=== PATIENT | female | born 1980 | race Caucasian/White ===

== ENCOUNTER → 2023-11-15 14:58 | Outpatient (REF) | payer BC, SELFPAY | LOC: PNTC 14:58 | PROVIDERS: ATTENDING PHYSICIAN Obstetrics & Gynecology | DX: Z36.82 Encounter for antenatal screening for nuchal translucency (principal); Z36.0 Encounter for antenatal screening for chromosomal anomalies; O09.511 Supervision of elderly primigravida, first trimester | CPT/HCPCS: 76801; 76813 ==

== ENCOUNTER → 2024-03-19 10:21 | Outpatient (REF) | payer BC, SELFPAY ==
--- NOTE | 2024-03-19 13:50 | PN.DIAED06 ---
Meal Plan - Gestational
- Breakfast
Gestational Diabetes Meal Plan Name: 1800 calories
Breakfast - Total Carbohydrate (grams): 30
Breakfast - Starch Carbohydrate: 1
Breakfast - Fruit Carbohydrate: 0
Breakfast - Milk Carbohydrate: 1
Breakfast - Nonstarchy Vegetables: Yes
Breakfast - Meat/Protein: 1
Breakfast - Fat: 2
- Morning Snack
Morning Snack - Total Carbohydrate (grams): 30
Morning Snack - Starch Carbohydrate: 1
Morning Snack - Fruit Carbohydrate: 0
Morning Snack - Milk Carbohydrate: 1
Morning Snack - Nonstarchy Vegetables: Yes
Morning Snack - Meat/Protein: 0.5
Morning Snack - Fat: 0
- Lunch
Lunch - Total Carbohydrate (grams): 45
Lunch - Starch Carbohydrate: 2
Lunch - Fruit Carbohydrate: 1
Lunch - Milk Carbohydrate: 0
Lunch - Nonstarchy Vegetables: Yes
Lunch - Meat/Protein: 2
Lunch - Fat: 1
- Afternoon Snack
Afternoon Snack - Total Carbohydrate (grams): 30
Afternoon Snack - Starch Carbohydrate: 1
Afternoon Snack - Fruit Carbohydrate: 1
Afternoon Snack - Milk Carbohydrate: 0
Afternoon Snack - Nonstarchy Vegetables: Yes
Afternoon Snack - Meat/Protein: 1
Afternoon Snack - Fat: 0
- Dinner
Dinner - Total Carbohydrate (grams): 45
Dinner - Starch Carbohydrate: 2
Dinner - Fruit Carbohydrate: 0
Dinner - Milk Carbohydrate: 1
Dinner - Nonstarchy Vegetables: Yes
Dinner - Meat/Protein: 2
Dinner - Fat: 2
- Evening Snack
Evening Snack - Total Carbohydrate (grams): 30
Evening Snack - Starch Carbohydrate: 1
Evening Snack - Fruit Carbohydrate: 0
Evening Snack - Milk Carbohydrate: 1
Evening Snack - Nonstarchy Vegetables: Yes
Evening Snack - Meat/Protein: 1
Evening Snack - Fat: 1
--- NOTE | 2024-03-19 15:03 | PN.DE ---
Diabetes Education
- -
Met with Ms. Waddell today, currently at 31 weeks of gestation, here today for medical nutrition therapy.
Explained glucose metabolism in body and what occurs during to cause increase blood sugar. Discussed importance of keeping BS well controlled to avoid complications to the baby during and after (macrosomia, hypoglycemia).
Explained to Mary that she is at increased risk of developing T2DM in the future. Mary brought with her an [employer] glucose meter.
Provided instructions on proper testing technique on the glucometer. Reviewed testing sites and testing pattern. She is aware to test FBS and 2 hr pp each meal. Expected results for FBS <95 mg/dl and 2 hr pp <120 mg/dl. She is aware if testing 1 hr
pp, result should be <140 mg/dl. Noted for blood sugar of 96
2 hrs after lunch. Log sheet provided for her to record results, she will send a 4 day meal log with all her FBG and 2hr Post prandial glucose numbers to this office for review. In addition, she will send all her glucose readings to Erna at
[facility] every Monday.
Discussed macronutrients, provided with 1800 nasreen GDM meal plan, she has a good understanding of healthy nutrition. She has been educated on how to read a nutritional fact label and look at total CHO in relation to serving size. No fruit or fruit
juice until noontime. Provided with handout on snacks as well as 'Choose Your Foods' booklet. Encouraged exercise and increase physical activity during and encouraged her to reach out should she have any questions or require insulin as her
progresses.
== END ==
LOC: DES 10:21
PROVIDERS: ATTENDING PHYSICIAN Obstetrics & Gynecology
DX: O24.419 Gestational diabetes mellitus in pregnancy, unspecified control (principal)
CPT/HCPCS: 99078

== ENCOUNTER → 2024-03-25 17:19 | Outpatient (REF) | payer BC, SELFPAY | LOC: PNTC 17:19 | PROVIDERS: ATTENDING PHYSICIAN Obstetrics & Gynecology | DX: O09.519 Supervision of elderly primigravida, unspecified trimester (principal); O24.419 Gestational diabetes mellitus in pregnancy, unspecified control | CPT/HCPCS: 76816 ==

== ENCOUNTER → 2024-04-02 16:55 | Outpatient (REF) | payer BC, SELFPAY | LOC: PNTC 16:55 | PROVIDERS: ATTENDING PHYSICIAN Obstetrics & Gynecology | DX: O24.419 Gestational diabetes mellitus in pregnancy, unspecified control (principal); O09.529 Supervision of elderly multigravida, unspecified trimester; O09.299 Supervision of pregnancy with other poor reproductive or obstetric history, unspecified trimester | CPT/HCPCS: 59025; 76815 ==

== ENCOUNTER → 2024-04-11 08:23 | Outpatient (REF) | payer BC, SELFPAY ==
--- NOTE | 2024-04-11 15:03 | PN.DE.MGMTRT ---
Insulin Management
- -
04/11/2024: Diabetes Education Consult for Insulin Instructions.
Met with Mary today for insulin instructions, currently at 34 weeks gestation with GDM. Her fasting glucose levels have been 98 to 123mg/dl, and 96 to 137mg/dl 2 hrs after meals. Pt has been recommended to start insulin-NPH 8 units @ HS per her
Perinatologist Dr. Alford. Discussed action of insulins as well as symptoms and treatment of hypoglycemia. She is aware to inject insulin in outer thigh, rotating sites and aware to store insulin pens that are not in use in the refrigerator.
Instructions with good return demonstration using the insulin pen were noted. Discussed importance of checking fasting blood sugar to know the effect of the basal insulin on her blood sugars overnight. She has been consistent with monitoring 2 hrs
after each meal.
Diabetes History
- -
Type of Diabetes: Gestational
Pre-Admission Diabetes Regimen
Insulin Pump Settings
IP Diabetes Regimen
Patient Education
== END ==
LOC: DES 08:23
PROVIDERS: ATTENDING PHYSICIAN Obstetrics & Gynecology; FAMILY PHYSICIAN Obstetrics & Gynecology
DX: O24.419 Gestational diabetes mellitus in pregnancy, unspecified control (principal)
CPT/HCPCS: 99078

== ENCOUNTER → 2024-04-11 16:35 | Outpatient (REF) | payer BC, SELFPAY | LOC: PNTC 16:35 | PROVIDERS: ATTENDING PHYSICIAN Obstetrics & Gynecology | DX: O09.529 Supervision of elderly multigravida, unspecified trimester (principal); O24.119 Pre-existing type 2 diabetes mellitus, in pregnancy, unspecified trimester; O36.5910 Maternal care for other known or suspected poor fetal growth, first trimester, not applicable or unspecified | CPT/HCPCS: 59025 ==

== ENCOUNTER → 2024-04-16 16:47 | Outpatient (REF) | payer BC, SELFPAY | LOC: PNTC 16:47 | PROVIDERS: ATTENDING PHYSICIAN Obstetrics & Gynecology | DX: O09.299 Supervision of pregnancy with other poor reproductive or obstetric history, unspecified trimester (principal); O09.529 Supervision of elderly multigravida, unspecified trimester; O24.419 Gestational diabetes mellitus in pregnancy, unspecified control | CPT/HCPCS: 59025; 76815 ==

== ENCOUNTER → 2024-04-23 16:54 | Outpatient (REF) | payer BC, SELFPAY | LOC: PNTC 16:54 | PROVIDERS: ATTENDING PHYSICIAN Obstetrics & Gynecology | DX: O09.519 Supervision of elderly primigravida, unspecified trimester (principal); O24.419 Gestational diabetes mellitus in pregnancy, unspecified control; O36.4XX0 Maternal care for intrauterine death, not applicable or unspecified | CPT/HCPCS: 59025; 76816 ==

== ENCOUNTER → 2024-04-29 16:23 | Outpatient (REF) | payer BC, SELFPAY | LOC: PNTC 16:23 | PROVIDERS: ATTENDING PHYSICIAN Obstetrics & Gynecology | DX: O09.519 Supervision of elderly primigravida, unspecified trimester (principal); O24.419 Gestational diabetes mellitus in pregnancy, unspecified control; O36.5990 Maternal care for other known or suspected poor fetal growth, unspecified trimester, not applicable or unspecified | CPT/HCPCS: 59025; 76815 ==

== ENCOUNTER 2024-05-01 16:19 | Inpatient (IN) | payer BC, SELFPAY ==
[2024-05-01 13:28] VITALS: BP 138/83; BMI 35.0
[2024-05-01 13:31] LABS: % Basophils 0.3 % (0-2); % Eosinophils 0.5 % (0-6); % Immature Granulocytes 0.4 % (0-0.5); % Lymphocytes 19.7 % (20.5-51.1); % Monocytes 7.1 % (1.7-9.3); Absolute Eosinophils 0.1 10^3/uL (0-0.7); Absolute Lymphocytes 2.2 10^3/uL (1.2-3.4); Absolute Monocytes 0.8 10^3/uL (0.1-0.6); Hematocrit 32.8 % (37.0-47.0); Hemoglobin 11.2 g/dL (12.0-16.0); Mean Corp Hgb Conc. 34.1 g/dL (33.0-37.0); Mean Corpuscular Hgb 30.2 pg (27.0-31.0); Mean Corpuscular Volume 88.4 fL (81.0-99.0); Mean Platelet Volume 10.8 fL (7.4-10.4); Nucleated Red Blood Cells % 0 %; Platelet Count 363 10^3/uL (130-400); Red Blood Cell Count 3.71 10^6/uL (4.20-5.40); Red Cell Dist. Width 14.3 % (11.5-14.5); White Blood Cell Count 11.1 10^3/uL (4.8-10.8)
[2024-05-01 13:46] LABS: ALT (SGPT) 39 U/L (0-35); AST (SGOT) 37 U/L (14-36); Albumin 3.7 g/dl (3.5-5.0); Alkaline Phosphatase 111 U/L (38-126); Blood Urea Nitrogen 13 mg/dl (7-17); Calcium 10.2 mg/dl (8.4-10.2); Carbon Dioxide 21 mmol/L (22-30); Chloride 104 mmol/L (98-107); Estimated Creatinine Clearance > 125 ml/min; Glucose 87 mg/dl (70-99); Potassium 4.7 mmol/L (3.5-5.1); Sodium 135 mmol/L (135-145); Total Bilirubin 0.2 mg/dl (0.2-1.3); Total Protein 6.7 g/dl (6.3-8.2); eGFR > 60.00
[2024-05-01 13:57] LABS: Protein/creatinine Ratio 0.3; Urine Protein 18 mg/dl
[2024-05-01] MEDS: TUMS EX (EXTRA STRENGTH) CHEWABLE TABLET 600 MG PO ×2 (16:39→21:01)
[2024-05-01 19:26] LABS: Glucose - Point of Care 101 mg/dl (70-99)
[2024-05-01] MEDS: CYTOTEC 25 MICROGRAM VAG (20:25)
[2024-05-01] MEDS: CYTOTEC PO (22:07)
[2024-05-01 23:41] LABS: Glucose - Point of Care 87 mg/dl (70-99)
[2024-05-02] MEDS: CYTOTEC PO ×4 (00:28→16:03)
[2024-05-02] MEDS: CYTOTEC 50 MICROGRAM PO (00:35)
[2024-05-02] MEDS: STADOL 1 MG IV ×3 (03:01→06:22)
[2024-05-02 03:36] LABS: Glucose - Point of Care 89 mg/dl (70-99)
[2024-05-02] MEDS: FLUSH (NSS) 2 FLUSH IV (04:48)
[2024-05-02 06:21] LABS: Glucose - Point of Care 100 mg/dl (70-99)
[2024-05-02] MEDS: SUBLIMAZE 100 MCG EPIDURAL (08:15)
[2024-05-02] MEDS: FENTANYL/BUPIVACAINE 100 EPIDURAL ×2 (08:15→16:03)
[2024-05-02 08:34] LABS: Glucose - Point of Care 104 mg/dl (70-99)
[2024-05-02 09:40] LABS: Glucose - Point of Care 91 mg/dl (70-99)
[2024-05-02 10:48] LABS: Glucose - Point of Care 88 mg/dl (70-99)
[2024-05-02 11:42] LABS: Glucose - Point of Care 96 mg/dl (70-99)
[2024-05-02 12:40] LABS: Glucose - Point of Care 90 mg/dl (70-99)
[2024-05-02 13:37] LABS: Glucose - Point of Care 89 mg/dl (70-99)
[2024-05-02 14:55] LABS: Glucose - Point of Care 96 mg/dl (70-99)
[2024-05-02 16:01] LABS: Glucose - Point of Care 92 mg/dl (70-99)
[2024-05-02] MEDS: LR 1000 IV (16:03)
[2024-05-02 17:10] LABS: Glucose - Point of Care 92 mg/dl (70-99)
[2024-05-02] MEDS: MOTRIN 600 MG PO (23:28)
[2024-05-03] MEDS: MOTRIN 600 MG PO (06:00)
[2024-05-03 06:26] LABS: Hematocrit 27.1 % (37.0-47.0); Hemoglobin 9.1 g/dL (12.0-16.0)
[2024-05-03 06:51] LABS: ALT (SGPT) 35 U/L (0-35); AST (SGOT) 39 U/L (14-36)
[2024-05-03] MEDS: FEOSOL 325 MG PO (10:38)
[2024-05-03] MEDS: TYLENOL 650 MG PO ×3 (12:06→22:12)
[2024-05-03 14:11] LABS: Syphilis/T. pallidum Ab Reflex Negative (Negative)
[2024-05-04] MEDS: TYLENOL 650 MG PO (04:17)
[2024-05-04] MEDS: MOTRIN 600 MG PO (04:17)
[2024-05-04] MEDS: FEOSOL 325 MG PO (07:41)
[2024-05-04] MEDS: SENOKOT-S 1 TABLET PO (07:41)
== END 2024-05-04 13:30 | disposition home or self-care (01) | DRG 807 ==
LOC: LDRP 16:19
PROVIDERS: Advanced Practice Midwife; Obstetrics & Gynecology; ADMITTING PHYSICIAN Obstetrics & Gynecology
PROC: 3E0P7VZ Introduction of Hormone into Female Reproductive, Via Natural or Artificial Opening (ICD-10-PCS; 2024-05-01)
PROC: 3E0DXGC Introduction of Other Therapeutic Substance into Mouth and Pharynx, External Approach (ICD-10-PCS; 2024-05-01)
PROC: 10E0XZZ Delivery of Products of Conception, External Approach (ICD-10-PCS; 2024-05-02)
PROC: 0KQM0ZZ Repair Perineum Muscle, Open Approach (ICD-10-PCS; 2024-05-02)
DX: O24.424 Gestational diabetes mellitus in childbirth, insulin controlled (principal); Z37.0 Single live birth; Z3A.37 37 weeks gestation of pregnancy; O70.1 Second degree perineal laceration during delivery; O32.2XX0 Maternal care for transverse and oblique lie, not applicable or unspecified; O69.81X0 Labor and delivery complicated by cord around neck, without compression, not applicable or unspecified; Z87.442 Personal history of urinary calculi; O14.04 Mild to moderate pre-eclampsia, complicating childbirth; R94.5 Abnormal results of liver function studies; O76 Abnormality in fetal heart rate and rhythm complicating labor and delivery; Z79.4 Long term (current) use of insulin
CPT/HCPCS: 88307; 36415; 80053; 82570; 82962; 84156; 84450; 84460; 85014; 85018; 85025; 86780; 86850; 86900; 86901